=== PATIENT | female | born 1995 | race African-American/Black ===

== ENCOUNTER → 2018-05-04 11:12 | Outpatient (CLI) | payer BC, SELFPAY ==
[2018-05-04 11:51] LABS: Basophils % 0.3 % (0.1-2.0); Eosinophils # 0.1 K/mm3 (0.0-0.4); Eosinophils % 0.9 % (0.1-12.0); Hematocrit 32.5 % (37.0-47.0); Hemoglobin 9.7 g/dL (12.2-16.2); Lymphocytes # 2.2 K/mm3 (0.7-4.5); Lymphocytes % 25.7 % (10-50); Mean Corpuscular HGB Conc 29.9 g/dL (31.8-35.4); Mean Corpuscular Hemoglobin 22.1 pg (27.0-31.2); Mean Corpuscular Volume 73.8 fl (81-99); Mean Platelet Volume 7.2 fl (7.4-10.4); Monocytes # 0.3 K/mm3 (0.1-1.0); Monocytes % 3.9 % (1.7-9.3); Neutrophils # 5.8 K/mm3 (1.8-7.8); Neutrophils % 69.2 % (37.0-80.0); Platelet Count 381 K/mm3 (142-424); Red Blood Count 4.41 M/mm3 (4.20-5.40); Red Cell Distribution Width 17.2 % (11.5-17.5); White Blood Count 8.4 K/mm3 (4.8-10.8)
[2018-05-05 07:20] LABS: HIV Screen 4th Generation wRfx Non Reactive (Non Reactive)
[2018-05-05 09:43] LABS: Hepatitis B Surface Antigen Negative (Negative); Hepatitis C Antibody 0.1 s/co ratio (0.0-0.9); Rubella Antibodies, IgG 2.73 index (Immune >0.99)
[2018-05-06 06:54] LABS: Rapid Plasma Reagin Ab Titer Non Reactive (NonRea<1:1)
== END ==
PROVIDERS: Visit Provider Nurse Practitioner Obstetrics & Gynecology
DX: Z34.90 Encounter for supervision of normal pregnancy, unspecified, unspecified trimester (principal)
CPT/HCPCS: 36415; 85025; 86592; 86703; 86762; 86850; 87340; 87380; G0432

== ENCOUNTER → 2018-05-16 14:45 | Outpatient (CLI) | payer BC, SELFPAY ==
--- NOTE | 2018-05-16 14:47 | US_ITS ---
US OB transvaginal: INDICATION: ITS.REASON: US OB Dates ORDERING PHYSICIAN: Waylon Andino MD PATIENT AGE: 23 years TECHNIQUE: ultrasound transvaginal scanning. COMPARISON: No previous relevant studies. FINDINGS: Early Single viable intrauterine gestation. . Cervix long closed. Adequate amount of fluid within G sac Heart rate identified. = 170 bpm. Cardiac activity Tracing documented Yolk sac = 0.56 cm. Eldora-rump length = 2.29 cm = 9 weeks 0 days. With this Average Ultrasound Age = 9 weeks 0 days. Gestational age based on LMP = 8 weeks 6 days. ( LMP 03/15/2018 utilized ( . . Left ovary not well visualized but grossly satisfactory approximately 2 cm size. Small follicles. Right ovary contains a 1.35 cyst. Possible corpus luteum cyst.. Right ovary including the cyst measuring up to 3.25 length and 2 cm wide. No fluid in cul-de-sac no additional findings. IMPRESSION------- Single viable intrauterine gestation Eldora-rump length/& Average Ultrasound Age = 9 weeks 0 day Ovaries within normal limits. 1.35 cm cyst right ovary possible corpus cyst
== END ==
PROVIDERS: PCP Family Medicine; Visit Provider Nurse Practitioner Obstetrics & Gynecology
DX: O26.841 Uterine size-date discrepancy, first trimester (principal)
CPT/HCPCS: 76817

== ENCOUNTER → 2018-08-08 14:48 | Outpatient (CLI) | payer BC, SELFPAY ==
--- NOTE | 2018-08-08 14:52 | US_ITS ---
US OB /maternal detail: INDICATION: ITS.REASON: US OB Complete ORDERING PHYSICIAN: Waylon Andino MD PATIENT AGE: 23 years TECHNIQUE: ultrasound transabdominal scanning. COMPARISON: No previous relevant studies. FINDINGS: Single viable intrauterine gestation. Breech position. Placenta: Posterior placenta grade 1. There is average amount fluid. The cervix appears satisfactory. Closed and measuring 4 cm in length. Complete survey performed and was unremarkable on the submitted images as in PACS. No discrete anomalies identified on survey imaging by technologist. Active fetus. Three-vessel cord with satisfactory umbilical cord insertion. 4- chamber heart noted. Survey of brain & ventricles unremarkable. Face and neck survey unremarkable. Diaphragm and chest views unremarkable. Abdomen: Both kidneys noted and unremarkable. Stomach noted and satisfactory. Spine: Survey of the spine satisfactory with no anomalies identified nor imaged. Both arms and legs noted. Amniotic Fluid: Adequate. Maternal adnexa: No significant findings. Measurements: Average ultrasound age 21w4d. Gestational Age 21w1d. Estimated due date by ultrasound age 0712/15/2018. Estimated weight 404 grams. BPD = 22w2d OFD = 21w5d HC = 21w1d AC = 21w2d FL = 21w1d Growth Percentile= 46 Heart Rate = 163 Cerebellum = 19w6d Humerus = 21w4d HC/AC is 1.17 (1.06-1.25). CI is 82% (70-86%). FL/BPD is 66%. FL/AC is 22% (20-24%). IMPRESSION: There is a single live fetus which is in breech presentation. Average ultrasound age is 21 weeks and 4 days. All parameters correlate. No obvious anomalies. Please see above for details.
== END ==
PROVIDERS: PCP Family Medicine; Visit Provider Nurse Practitioner Obstetrics & Gynecology
DX: Z36.0 Encounter for antenatal screening for chromosomal anomalies (principal)
CPT/HCPCS: 76811

== ENCOUNTER → 2018-08-22 18:04 | Outpatient (CLI) | payer BC, SELFPAY | LOC: LAB 18:05 → LAB.DROPOF 08-23 11:09 | PROVIDERS: Visit Provider Nurse Practitioner Obstetrics & Gynecology | DX: O23.40 Unspecified infection of urinary tract in pregnancy, unspecified trimester (principal) | CPT/HCPCS: 87086; 87088; 87186 ==

== ENCOUNTER → 2018-10-18 17:37 | Outpatient (CLI) | payer BC, SELFPAY | PROVIDERS: Visit Provider Nurse Practitioner Obstetrics & Gynecology | DX: Z34.90 Encounter for supervision of normal pregnancy, unspecified, unspecified trimester (principal) | CPT/HCPCS: 87086; 87088; 87186 ==

== ENCOUNTER → 2018-11-16 18:05 | Outpatient (CLI) | payer BC, SELFPAY | PROVIDERS: Visit Provider Nurse Practitioner Obstetrics & Gynecology | DX: Z34.90 Encounter for supervision of normal pregnancy, unspecified, unspecified trimester (principal) | CPT/HCPCS: 86403 ==

== ENCOUNTER 2018-11-26 03:37 | Outpatient (CLI) | payer BC, SELFPAY ==
[2018-11-26 04:02] VITALS: BMI 34.3
[2018-11-26 04:15] VITALS: BP 138/85; PULSE 79; RESP 20; TEMP 36.7
[2018-11-26 04:21] LABS: Fetal Membrane Rupture (Rapid) Negative (Negative)
[2018-11-26 04:27] VITALS: BMI 34.3
== END 2018-11-26 05:35 | disposition home or self-care (01) ==
LOC: OBOUT 03:40 → OB 03:42
PROVIDERS: PCP Family Medicine; Visit Provider Nurse Practitioner Obstetrics & Gynecology
DX: O26.893 Other specified pregnancy related conditions, third trimester (principal); Z3A.36 36 weeks gestation of pregnancy
CPT/HCPCS: 59025; 84112; 96372

== ENCOUNTER 2018-12-03 19:21 | Inpatient (IN) ==
[2018-12-03 19:37] LABS: Microscopic, Urine URINE MICROSCOPIC (MICROSCOPIC)
[2018-12-03 19:45] LABS: Appearance,Urine CLEAR (Clear); Bilirubin,Urine Negative (Negative); Blood, Urine Negative (Negative); Color,Urine YELLOW (Yellow); Glucose,Urine (UA) Negative (Negative); Ketones,Urine 1+ (Negative); Leukocyte Esterase,Urine 1+ (Negative); Protein,Urine TRACE (Negative)
[2018-12-03 19:47] LABS: Amphetamine/Metha Screen,Urine Negative ng/mL (<1000); Barbiturates Screen,Urine Negative ng/mL (<200); Benzodiazepines Screen,Urine Negative ng/mL (<200); Cannabinoid Screen,Urine Negative ng/mL (<50); Cocaine Screen,Urine Negative ng/mL (<300); Methadone Screen,Urine Negative ng/mL (<300); Opiate Screen,Urine Negative ng/mL (<300); Phencyclidine Screen,Urine Negative ng/mL (<25)
[2018-12-03 19:50] LABS: Squamous Epithelial Cell,Urine 20-50 #/hpf (0-5)
[2018-12-03 19:51] LABS: Bacteria,Urine 4+ /lpf
[2018-12-03 21:20] LABS: Basophils % 0.2 % (0.1-2.0); Eosinophils % 0.2 % (0.1-12.0); Lymphocytes # 2.4 K/mm3 (0.7-4.5); Lymphocytes % 21.8 % (10-50); Mean Corpuscular HGB Conc 28.5 g/dL (31.8-35.4); Mean Corpuscular Volume 65.7 fl (81-99); Mean Platelet Volume 8.1 fl (7.4-10.4); Monocytes # 0.4 K/mm3 (0.1-1.0); Monocytes % 3.8 % (1.7-9.3); Neutrophils # 8.1 K/mm3 (1.8-7.8); Platelet Count 508 K/mm3 (142-424); Red Blood Count 3.91 M/mm3 (4.20-5.40); Red Cell Distribution Width 19.5 % (11.5-17.5); White Blood Count 10.9 K/mm3 (4.8-10.8)
[2018-12-03 21:22] LABS: Hematocrit 25.7 % (37.0-47.0); Hemoglobin 7.3 g/dL (12.2-16.2)
--- NOTE | 2018-12-03 22:29 | Progress Note ---
[facility] Anesthesia Checklist - Patient Identification Patient Identification: Arm Band, Verbal (Name & ) - Structural Data Admitted From: Home Planned Operative Procedure/s: Labor epidural Consent for Planned Operative Procedure(s) Verified: Yes Verified Documents: Surgical Consent, History and Physical - Chart Verification Results Verified: CBC, UA - Additional verifications Patient : Yes Anesthesia Reactions: No - Airway Assessment C-Spine Mobility Assessed: Yes TMJ Mobility Assessed: Yes Dentition: Good Dentition - Neurological Assessment Level of Consciousness: Awake, Alert, Appropriate, Follows Commands Hx Seizures: No Numbness or tingling in extremities: No - Anesthesia Plan Anesthesia Risk discussed: Yes Anesthesia Plan: Verified ASA Class: II Anesthesia Type: Epidural [facility] History I have reviewed the patient's past medical history: Yes Medical History: Reports:: Gastroesophageal Reflux Disease(GERD) *Have you ever received a pneumonia vaccine?: No *Have you received a flu vaccine this season?: No Other Medical History: Reports: Anemia Other Surgeries: Yes: Dilation and Curettage. No: Amputation: No Fractures: No - *Social History Smoking Status: Never smoker Alcohol Intake: never Substance Use Type: denies use *Occupational Status:: employed *Travel in the last 8 weeks: None Family Hx:: Diabetes BASKET PATCHER history: Spontaneous , Therapeutic Para: 2
--- NOTE | 2018-12-03 23:09 | Progress Note ---
Internal Medicine - PN: Subj *Date: 12/03/18 *Time: 23:07 Interval history: This 23-year-old 5 para 2 AB 2 black female is admitted at 37 4/7 weeks in active labor with spontaneous rupture of membranes at home and a positive AmniSure test. Upon admission she was 2 to 3 cm dilated. She is labeled under labor epidural which is worked well. Examination at 2230 revealed her cervix to be completely effaced, 8 to 9 cm, with a presenting vertex at -3 station and a bulging bag of water. Amniotomy revealed meconium-stained fluid. An internal electrode has been placed. The patient's contractions have waned, and she will be augmented with intravenous Pitocin. Her hemoglobin is 7.3 g, but she is clinically stable. She has been typed and crossed. Exam Vital signs and Labs for Last 24 Hours: Temp Pulse Resp BP Pulse Ox 97.9 F 103 H 12 149/85 H 100 12/03/18 21:03 12/03/18 21:03 12/03/18 21:03 12/03/18 21:03 12/03/18 21:03 Laboratory Results - last 24 hr 12/03/18 19:30: Urine Color Yellow, Urine Appearance Clear, Urine pH 7.0, Ur Specific [place] 1.020, Urine Protein Trace, Urine Glucose (UA) Negative, Urine Ketones 1+, Urine Blood Negative, Urine Nitrate Positive, Urine Bilirubin Ne gative, Urine Urobilinogen 4.0, Ur Leukocyte Esterase 1+ A, Urine WBC 5-10, Ur Squamous Epith Cells 20-50, Urine Bacteria 4+ 12/03/18 19:30: Urine Opiates Screen Negative, Urine Methadone Screen Negative, Ur Barbituates Screen Negative, Ur Phencyclidine Scrn Negative, Ur Amphetamines Screen Negative, U Benzodiazepines Scrn Negative, Urine Cocaine Screen Negative, U Marijuana (THC) Screen Negative 12/03/18 19:40: Membrane Rupture Positive A 12/03/18 21:00: WBC 10.9 H, RBC 3.91 L, Hgb 7.3 L*, Hct 25.7 L, MCV 65.7 L, MCH 18.7 L, MCHC 28.5 L, RDW 19.5 H, Plt Count 508 H, MPV 8.1, Neut % (Auto) 74.0, Lymph % (Auto) 21.8, [place] % (Auto) 3.8, Eos % (Auto) 0.2, Baso % (Auto) 0.2, Neut # (Auto) 8.1 H, Lymph # (Auto) 2.4, [place] # (Auto) 0.4, Eos # (Auto) 0.0, Baso # (Auto) 0.0 12/03/18 21:00: Blood Type O Positive, Antibody Screen Negative, Crossmatch ([facility]) See Detail I & O for Last 24 hours: Intake & Output 12/01/18 12/02/18 12/03/18 12/04/18 11:59 11:59 11:59 11:59 Weight 207 lb
--- NOTE | 2018-12-04 00:19 | Progress Note ---
Internal Medicine - PN: Subj *Date: 12/04/18 *Time: 00:18 (Cervix complete, complete, -1.) Exam Vital signs and Labs for Last 24 Hours: Temp Pulse Resp BP Pulse Ox 97.9 F 103 H 12 149/85 H 100 12/03/18 21:03 12/03/18 21:03 12/03/18 21:03 12/03/18 21:03 12/03/18 21:03 Laboratory Results - last 24 hr 12/03/18 19:30: Urine Color Yellow, Urine Appearance Clear, Urine pH 7.0, Ur Specific [place] 1.020, Urine Protein Trace, Urine Glucose (UA) Negative, Urine Ketones 1+, Urine Blood Negative, Urine Nitrate Positive, Urine Bilirubin Negative, Urine Urobilinogen 4.0, Ur Leukocyte Esterase 1+ A, Urine WBC 5-10, Ur Squamous Epith Cells 20-50, Urine Bacteria 4+ 12/03/18 19:30: Urine Opiates Screen Negative, Urine Methadone Screen Negative, Ur Barbituates Screen Negative, Ur Phencyclidine Scrn Negative, Ur Amphetamines Screen Negative, U Benzodiazepines Scrn Negative, Urine Cocaine Screen Negative, U Marijuana (THC) Screen Negative 12/03/18 19:40: Membrane Rupture Positive A 12/03/18 21:00: WBC 10.9 H, RBC 3.91 L, Hgb 7.3 L*, Hct 25.7 L, MCV 65.7 L, MCH 18.7 L, MCHC 28.5 L, RDW 19.5 H, Plt Count 508 H, MPV 8.1, Neut % (Auto) 74.0, Lymph % (Auto) 21.8, [place] % (Auto) 3.8, Eos % (Auto) 0.2, Baso % (Auto) 0.2, Neut # (Auto) 8.1 H, Lymph # (Auto) 2.4, [place] # (Auto) 0.4, Eos # (Auto) 0.0, Baso # (Auto) 0.0 12/03/18 21:00: Blood Type O Positive, Antibody Screen Negative, Crossmatch ([facility]) See Detail I & O for Last 24 hours: Intake & Output 12/01/18 12/02/18 12/03/18 12/04/18 11:59 11:59 11:59 11:59 Weight 207 lb
--- NOTE | 2018-12-04 01:07 | Procedure Note ---
- Delivery Note Delivery Date:: 12/04/18 Delivery Time:: 00:50 Anesthesia Type: Epidural Was labor medically induced?: No Induction method: none Gestational age (weeks): 37 (37 4/7 weeks--active labor/SROM) delivered prior to 39 weeks?: Yes Justification for early elective delivery:: Active Labor Infant Gender: Male at 1 minute: 6 at 5 minutes: 9 Suction Catheter Type: Sterile Catheter AF:: thin meconium Delivery Procedure:: outlet forceps Placental Delivery Description: Spontaneous, Normal Configuration (This 23-year-old 5, now para 3, Ab2 black female was admitted at 37 4/7 weeks)
--- NOTE | 2018-12-04 01:17 | Progress Note ---
Internal Medicine - PN: Subj *Date: 12/04/18 *Time: 01:09 Interval history: This 23-year-old 5, now para 3, Ab2 black female was admitted at 37-4/7 weeks in active labor with spontaneous rupture of membranes and a positive AmniSure test. At the time of admission, her cervix was 2 to 3 cm dilated. The patient's hemoglobin was noted to be 7.3g; she was typed and crossed, but remained clinically stable throughout the delivery process. She labeled under labor epidural, which worked well. There were occasional decelerations, with good recovery. At 8 cm dilatation an amniotomy revealed thin meconium stained fluid. An internal monitor was placed. At this point the patient's cont ractions had diminished, and she was augmented with intravenous Pitocin. And went steadily to completion at 0015 on 12/04/2018. The patient pushed somewhat ineffectively, and the presentation was direct occiput posterior. She was delivered by outlet forceps, without an episiotomy. There was a tight nuchal cord x1, which was easily reduced. The baby's nasal and oropharynx were bulb suction, and [place] suctioned (minimal meconium). Cord blood was obtained (cord pH pending). The baby was handed into the arms of the attending assistant womens volleyball coach, Dr. Diaz, who assigned Apgars of 6 at 1 minute and 9 at 5 minutes to this male infant (weight in length pending), born at 0050 the baby required routine resuscitative measures and appears to be doing well in Kangaroo care. The placenta delivered spontaneously, intact, at 0053, making the total time in labor 5 hours 53 minutes. The uterus was inspected and was felt to be clean, and was involuting well, with IV Pitocin running. There were no lacerations. The rectovaginal septum was intact at the close of the procedure. The sponge and needle counts correct. The estimated blood loss was 350 cc. The patient tolerated the procedure well, and was recovered in excellent condition. Her hemoglobin will be checked 2 hours , with the possibility of transfusion having been discussed with the patient. Her blood type is O+. Her rubella titer is immune. She plans to bottlefeed. Exam Vital signs and Labs for Last 24 Hours: Temp Pulse Resp BP Pulse Ox 97.9 F 103 H 12 149/85 H 100 12/03/18 21:03 12/03/18 21:03 12/03/18 21:03 12/03/18 21:03 12/03/18 21:03 Laboratory Results - last 24 hr 12/03/18 19:30: Urine Color Yellow, Urine Appearance Clear, Urine pH 7.0, Ur Specific [place] 1.020, Urine Protein Trace, Urine Glucose (UA) Negative, Urine Ketones 1+, Urine Blood Negative, Urine Nitrate Positive, Urine Bilirubin Negative, Urine Urobilinogen 4.0, Ur Leukocyte Esterase 1+ A, Urine WBC 5-10, Ur Squamous Epith Cells 20-50, Urine Bacteria 4+ 12/03/18 19:30: Urine Opiates Screen Negative, Urine Methadone Screen Negative, Ur Barbituates Screen Negative, Ur Phencyclidine Scrn Negative, Ur Amphetamines Screen Negative, U Benzodiazepines Scrn Negative, Urine Cocaine Screen Negative, U Marijuana (THC) Screen Negative 12/03/18 19:40: Membrane Rupture Positive A 12/03/18 21:00: WBC 10.9 H, RBC 3.91 L, Hgb 7.3 L*, Hct 25.7 L, MCV 65.7 L, MCH 18.7 L, MCHC 28.5 L, RDW 19.5 H, Plt Count 508 H, MPV 8.1, Neut % (Auto) 74.0, Lymph % (Auto) 21.8, [place] % (Auto) 3.8, Eos % (Auto) 0.2, Baso % (Auto) 0.2, Neut # (Auto) 8.1 H, Lymph # (Auto) 2.4, [place] # (Auto) 0.4, Eos # (Auto) 0.0, Baso # (Auto) 0.0 12/03/18 21:00: Blood Type O Positive, Antibody Screen Negative, Crossmatch ([facility]) See Detail I & O for Last 24 hours: Intake & Output 12/01/18 12/02/18 12/03/18 12/04/18 11:59 11:59 11:59 11:59 Weight 207 lb
[2018-12-04 03:12] LABS: Hemoglobin 6.6 g/dL (12.2-16.2)
[2018-12-04 03:13] LABS: Hematocrit 24.1 % (37.0-47.0)
--- NOTE | 2018-12-04 09:46 | Progress Note ---
Internal Medicine - PN: Subj *Date: 12/04/18 *Time: 09:45 (This is day of delivery. The patient's doing well. Vital signs stable. Abdomen soft. Lochia normal. Uterine fundus involuting well. The baby is also doing well. He weighed 6 pounds 9 ounces and was 19 inches long. He will be circumcised later. The patient is breast-feeding. Her hemoglobin (7.3 g on admission) dropped to 6.6 g and she has been transfused 2 units of packed cells. Post transfusion hemoglobin has not yet been done. Impression: Stable.) Exam Vital signs and Labs for Last 24 Hours: Temp Pulse Resp BP Pulse Ox 98.1 F 88 16 147/91 H 100 12/04/18 09:15 12/04/18 09:15 12/04/18 09:15 12/04/18 09:15 12/04/18 09:15 Laboratory Results - last 24 hr 12/03/18 19:30: Urine Color Yellow, Urine Appearance Clear, Urine pH 7.0, Ur Specific [place] 1.020, Urine Protein Trace, Urine Glucose (UA) Negative, Urine Ketones 1+, Urine Blood Negative, Urine Nitrate Positive, Urine Bilirubin Negative, Urine Urobilinogen 4.0, Ur Leukocyte Esterase 1+ A, Urine WBC 5-10, Ur Squamous Epith Cells 20-50, Urine Bacteria 4+ 12/03/18 19:30: Urine Opiates Screen Negative, Urine Methadone Screen Negative, Ur Barbituates Screen Negative, Ur Phencyclidine Scrn Negative, Ur Amphetamines Screen Negative, U Benzodiazepines Scrn Negative, Urine Cocaine Screen Negative, U Marijuana (THC) Screen Negative 12/03/18 19:40: Membrane Rupture Positive A 12/03/18 21:00: WBC 10.9 H, RBC 3.91 L, Hgb 7.3 L*, Hct 25.7 L, MCV 65.7 L, MCH 18.7 L, MCHC 28.5 L, RDW 19.5 H, Plt Count 508 H, MPV 8.1, Neut % (Auto) 74.0, Lymph % (Auto) 21.8, [place] % (Auto) 3.8, Eos % (Auto) 0.2, Baso % (Auto) 0.2, Neut # (Auto) 8.1 H, Lymph # (Auto) 2.4, [place] # (Auto) 0.4, Eos # (Auto) 0.0, B aso # (Auto) 0.0 12/03/18 21:00: Blood Type O Positive, Antibody Screen Negative, Crossmatch ([facility]) See Detail 12/04/18 03:00: Hgb 6.6 L*, Hct 24.1 L I & O for Last 24 hours: Intake & Output 12/01/18 12/02/18 12/03/18 12/04/18 11:59 11:59 11:59 11:59 Intake Total 360 / 360 Balance 360 / 360 Weight 207 lb Microbiology Reports for the Last 24 Hours: Microbiology 12/03/18 19:30 Urine,Clean Catch Urine Culture - Preliminary Gram Negative Rods
[2018-12-04 10:44] LABS: Hematocrit 29.1 % (37.0-47.0)
[2018-12-04 10:45] LABS: Hemoglobin 8.6 g/dL (12.2-16.2)
--- NOTE | 2018-12-05 06:26 | Progress Note ---
Internal Medicine - PN: Subj *Date: 12/05/18 *Time: 06:25 (This is day #1. The patient is afebrile. Vital signs stable. Abdomen soft. Lochia normal. Uterine fundus involuting well. Hemoglobin after transfusion is 8.6 g (7.3 g on admission). The baby is doing well and will be circumcised today. I am going to start the patient on oral iron today.) Exam Vital signs and Labs for Last 24 Hours: Temp Pulse Resp BP Pulse Ox 98.1 F 83 18 127/76 100 12/04/18 19:50 12/04/18 19:50 12/04/18 19:50 12/04/18 19:50 12/04/18 19:50 Laboratory Results - last 24 hr 12/03/18 19:30: Urine Color Yellow, Urine Appearance Clear, Urine pH 7.0, Ur Specific [place] 1.020, Urine Protein Trace, Urine Glucose (UA) Negative, Urine Ketones 1+, Urine Blood Negative, Urine Nitrate Positive, Urine Bilirubin Negative, Urine Urobilinogen 4.0, Ur Leukocyte Esterase 1+ A, Urine WBC 5-10, Ur Squamous Epith Cells 20-50, Urine Bacteria 4+ 12/03/18 21:00: Blood Type O Positive, Antibody Screen Negative, Crossmatch ([facility]) See Detail 12/04/18 10:13: Hgb 8.6 L D, Hct 29.1 L I & O for Last 24 hours: Intake & Output 12/02/18 12/03/18 12/04/18 12/05/18 11:59 11:59 11:59 11:59 Intake Total 610 / 610 Balance 610 / 610 Weight 207 lb Microbiology Reports for the Last 24 Hours: Microbiology 12/03/18 19:30 Urine,Clean Catch Urine Culture - Preliminary Gram Negative Rods
--- NOTE | 2018-12-05 15:08 | Progress Note ---
Internal Medicine - PN: Subj *Date: 12/05/18 *Time: 15:08 Interval history: Patient doing well. Uterine fundus well involuted. Minimal bleeding. Impression: Stable. Exam Vital signs and Labs for Last 24 Hours: Temp Pulse Resp BP Pulse Ox 98.1 F 83 18 127/76 100 12/04/18 19:50 12/04/18 19:50 12/04/18 19:50 12/04/18 19:50 12/04/18 19:50 I & O for Last 24 hours: Intake & Output 12/03/18 12/04/18 12/05/18 12/06/18 11:59 11:59 11:59 11:59 Intake Total 610 / 610 Balance 610 / 610 Weight 207 lb Microbiology Reports for the Last 24 Hours: Microbiology 12/03/18 19:30 Urine,Clean Catch Urine Culture - Final Klebsiella pneumoniae ozaenae
[2018-12-05 17:46] VITALS: BP 137/75
--- NOTE | 2018-12-06 07:10 | Progress Note ---
Internal Medicine - PN: Subj *Date: 12/06/18 *Time: 07:10 Interval history: This is day #2. The patient is afebrile. Her vital signs are stable. Abdomen soft. Lochia normal. Uterine fundus has involuted well. Her hemoglobin is 8.6 g, but she is clinically stable. The baby is doing well. She will be discharged today. Exam Vital signs and Labs for Last 24 Hours: Temp Pulse Resp BP Pulse Ox 98.1 F 83 18 127/76 100 12/04/18 19:50 12/04/18 19:50 12/04/18 19:50 12/04/18 19:50 12/04/18 19:50 Laboratory Results - last 24 hr 12/03/18 21:00: Crossmatch ([facility]) See Detail I & O for Last 24 hours: Intake & Output 12/03/18 12/04/18 12/05/18 12/06/18 11:59 11:59 11:59 11:59 Intake Total 610 / 610 Balance 610 / 610 Weight 207 lb Microbiology Reports for the Last 24 Hours: Microbiology 12/03/18 19:30 Urine,Clean Catch Urine Culture - Final Klebsiella pneumoniae ozaenae
--- NOTE | 2018-12-06 07:15 | Discharge Summary ---
General - General Admission date:: 12/03/18 Discharge date: 12/06/18 (This 23-year-old 5, now para 3, AB 2 - [place] female was admitted at 37-4/7 weeks with spontaneous rupture of membranes at home and regular contractions. She labeled under labor epidural, which worked well. Her hemoglobin on admission was 7.3 g. She went steadily to completion and required outlet forceps because of persistent occiput posterior. The baby was an 6/9, 6 pound 9 ounce, 19 inch male born on 12/04/2018 at 0050. The baby is bottlefeeding, has been circumcised, and is done well. , the patient is done well. Her hemoglobin dropped to 6.6 g and she was transfused 2 units of packed cells, after which her hemoglobin is 8.6 g, at which she is clinically stable. She is eating and ambulating and has had a bowel movement. Her uterine fundus is involuting well. Her lochia is normal. Her abdomen is soft. She is bottlefeeding. She is not a smoker. She is discharged home on the third hospital and second day on iron 3 times a day and vitamins once a day. She is also to take Tylenol and Motrin, as needed for pain. She is given appropriate instructions as to diet and exercise, and she is to return to Dr. Weeks's office in 2 weeks for follow- up. Her blood type is O+. Her rubella titer is immune.) Hospital Course Rhogam Administration: Not Indicated Objective Vital signs: Temp Pulse Resp BP Pulse Ox 98.1 F 83 18 127/76 100 12/04/18 19:50 12/04/18 19:50 12/04/18 19:50 12/04/18 19:50 12/04/18 19:50 Results Labs on day of discharge: Labs from last 24 hours 12/03/18 21:00 Crossmatch ([facility]) See Detail Discharge Plan - Patient Discharge Instructions - Follow up Plan Home Medications: Home Medications Medication Instructions Recorded Confirmed Type Ferrous Sulfate 325 mg PO DAILY 12/04/18 12/04/18 History Vit Calc,Iron,Folic [Kpn] 1 tab PO DAILY 12/04/18 12/04/18 History Sertraline HCl [Zoloft] 50 mg PO DAILY 12/04/18 12/05/18 History raNITIdine HCl [Ranitidine HCl] 150 mg PO BID 12/04/18 12/04/18 History Ondansetron [Zofran 4mg ODT] 4 mg PO QIDP PRN 12/05/18 12/05/18 History Prescriptions/Medication Reconciliation: No Action Ferrous Sulfate 325 mg PO DAILY Vit Calc,Iron,Folic [Kpn] 1 tab PO DAILY raNITIdine HCl [Ranitidine HCl] 150 mg PO BID Sertraline HCl [Zoloft] 50 mg PO DAILY Ondansetron [Zofran 4mg ODT] 4 mg PO QIDP PRN PRN Reason: nausea and vomiting
== END 2018-12-06 11:30 | disposition home or self-care (01) | DRG 807 ==
LOC: OBOUT 19:21 → OB 19:25
PROVIDERS: ADMIT Obstetrics & Gynecology; ATTEND Obstetrics & Gynecology
CPT/HCPCS: 36415; 59025; 80305; 81001; 84112; 85014; 85018; 85025; 86850; 87086; 87088; 87186; 94761; C1758; P9016